=== PATIENT | female | born 1965 | race Caucasian/White ===

== ENCOUNTER 2018-08-12 14:51 | Emergency (ER) | payer MEDICAID, MEDICARE ==
[~2018-08-12] VITALS: Ht 167.6 cm; Wt 61.9 kg
[~2018-08-12 14:51] MED LIST: CIPR500T87 PO; FURO80TA3 PO; OXYC5TAB3 PO; SPIR100T4 PO
--- NOTE | 2018-08-12 15:36 | NUR ---
GAVE PT URINE CUP AND EXPLAINED THE PROCESS AND IMPORTANCE OF COLLECTING URINE
--- NOTE | 2018-08-12 15:42 | NUR ---
PT MEDICATED FOR PAIN PER EMAR
[2018-08-12 16:16] LABS: MD YES; MEAN CORPUSCULAR HEMOGLOBIN 28.8 pg (27.0-34.8); MEAN CORPUSCULAR VOLUME 84.5 fL (80-100); MEAN PLATELET VOLUME 8.5 fL (7.4-10.4); PLATELET COUNT 87 x10^3/uL (130-400); RED BLOOD COUNT 4.43 x10^6/uL (3.82-5.3)
[2018-08-12 16:22] LABS: ANION GAP 10 mmol/L (5-15); CALCIUM 8.2 mg/dL (8.5-10.1); CHLORIDE 107 mmol/L (98-107); CREATININE 0.92 mg/dL (0.55-1.02)
[2018-08-12 16:27] LABS: EOS#(MANUAL) 0.06 x10^3/uL (0.0-0.4); EOS% (MANUAL) 2 % (1-7); LYMPH#(MANUAL) 0.73 x10^3/uL (1-3.4); LYMPHS% (MANUAL) 26 % (22-44); MONOS#(MANUAL) 0.34 x10^3/uL (0.3-2.7); MONOS% (MANUAL) 12 % (2-9); SEG#(MANUAL) 1.68 x10^3/uL (1.8-6.8); SEGS% (MANUAL) 60 % (42-75)
[2018-08-12 16:28] LABS: <RBC MORPHOLOGY> NORMAL
[2018-08-12 16:29] LABS: <PLATELET ESTIMATE> DECREASED; <PLT MORPHOLOGY> NORMAL PLT MORPH
[2018-08-12 16:34] VITALS: BP 148/48
[2018-08-12 16:46] LABS: MICROSCOPIC INDICATED
[2018-08-12 16:49] LABS: CULTURE INDICATED? YES
--- NOTE | 2018-08-12 16:59 | NUR ---
PT'S CHART UP FOR RECHECK
--- NOTE | 2018-08-12 17:41 | NUR ---
PT RESTING ON GURNEY. RR EVEN AND UNLABORED. PT DENIES NEEDS OR PAIN ATT. PT ON CONT. SPO2 AND BP MONITOR, VSS. AWAITING DISPO
== END 2018-08-12 18:03 | disposition home or self-care (01) ==
LOC: ED 16:24
DX: M54.5 Low back pain (principal); K70.31 Alcoholic cirrhosis of liver with ascites; R79.9 Abnormal finding of blood chemistry, unspecified; E11.9 Type 2 diabetes mellitus without complications; I10 Essential (primary) hypertension; Z87.19 Personal history of other diseases of the digestive system
CPT/HCPCS: 36415; 72110; 80048; 81001; 85025; 87086; 99284